=== PATIENT | female | born 1955 | race Caucasian/White ===

== ENCOUNTER → 2020-05-07 | Outpatient (CLI) | payer MEDICARE, MEDICAID | END | disposition home or self-care (01) | LOC: CARD 09:02 | PROVIDERS: ATTEND Student in an Organized Health Care Education/Training Program | DX: J44.1 Chronic obstructive pulmonary disease with (acute) exacerbation (principal); F17.200 Nicotine dependence, unspecified, uncomplicated | CPT/HCPCS: 94060; 94726; 94729 ==

== ENCOUNTER 2021-06-13 15:41 | Observation (INO) | payer MEDICARE, MEDICAID ==
[~2021-06-13] VITALS: Ht 165.1 cm; Wt 68.3 kg
[2021-06-14 13:24] VITALS: BP 155/88
== END 2021-06-14 16:58 | disposition home or self-care (01) ==
LOC: ED 21:10 → EDIP 21:22 → INTOOBSV 21:22 → 4WST 22:03
PROVIDERS: ADMIT Internal Medicine; ATTEND Family Medicine
DX: E87.1 Hypo-osmolality and hyponatremia (principal); K52.839 Microscopic colitis, unspecified; F43.10 Post-traumatic stress disorder, unspecified; F31.9 Bipolar disorder, unspecified; E11.9 Type 2 diabetes mellitus without complications; E78.5 Hyperlipidemia, unspecified; M06.9 Rheumatoid arthritis, unspecified; F12.90 Cannabis use, unspecified, uncomplicated; Z79.899 Other long term (current) drug therapy
CPT/HCPCS: 36415; 80048; 80156; 80164; 81001; 82040; 83930; 83935; 84295; 84300; 84443; 85025; 87077; 87086; 87186; 93005; 99284; G0378